=== PATIENT | female | born 1945 | race Caucasian/White ===

== ENCOUNTER 2024-06-10 10:51 | Emergency (ER) | payer MEDICARE, SELFPAY ==
[2024-06-10] VITALS (10 sets, daily range): BP systolic 111–140; BP diastolic 68–82; PULSE 63–79; RESP 15–92; TEMP 36.2–36.9; O2SAT 92–98; BMI 21.1
--- NOTE | 2024-06-10 11:10 | EKG_ITS ---
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
--- NOTE | 2024-06-10 11:35 | EDNOTE_ITS ---
ED Fall Injury RME/HPI General Chief Complaint: Fall Stated Complaint: FALL Time Seen by Provider: 06/10/24 11:15 Arrival date/time: 06/10/24 10:51 RME / HPI RME / HPI Narrative: 79-year-old female patient, with significant history of seizure, dementia, hypothyroidism, was brought in from custodial for evaluation regarding ground-level fall. Unwitnessed. Patient was noted on the floor. Patient complained of left shoulder pain, left hip pain, and bruising to the left eyebrow. Patient is only alert and oriented x 1 to self only. Patient answers questions when asked. Denies any complaint. She does not remember what happene d. Patient was given morphine on the way to the emergency room. Related Data Home Medications ?Medication ?Instructions ?Recorded ?Confirmed Calcium Carbonate/Vitamin D3 600 mg PO QDAY ##0 01/14/16 10/11/18 (Calcium + D 600 Mg Tablet) Multivitamins With Minerals * 1 chew PO QDAY #0 tabs 01/14/16 10/11/18 (CENTRUM *) esomeprazole magnesium 40 mg 40 mg PO QDAY ##0 01/14/16 01/23/18 capsule,delayed release (Nexium) magnesium 250 mg tablet 400 mg PO BID #0 tabs 01/14/16 01/23/18 metoprolol succinate 100 mg 100 mg PO QDAY ##0 01/14/16 10/11/18 tablet,extended release 24 hr (Toprol XL) ramipril 2.5 mg capsule (Altace) 2.5 mg PO BID #0 caps 01/14/16 10/11/18 simvastatin 10 mg tablet (Zocor) 10 mg PO HS #0 tabs 01/14/16 10/11/18 venlafaxine 150 mg 150 mg PO QDAY ##0 12/24/16 10/11/18 capsule,extended release 24 hr (Effexor XR) aspirin 81 mg tablet,delayed 81 mg PO QDAY 10/11/18 10/11/18 release (Wander Low Dose Aspirin) ferrous sulfate 27 mg iron tablet 65 mg PO QDAY 10/11/18 10/11/18 donepezil 10 mg tablet 10 mg PO QDAY 06/07/20 06/07/20 memantine 10 mg tablet 20 mg PO QDAY 06/07/20 06/07/20 ramipril 2.5 mg tablet 2.5 mg PO QDAY 06/07/20 06/07/20 Previous Rx's ?Medication ?Instructions ?Recorded albuterol sulfate 90 mcg/actuation 2 puff inhalation Q4H #1 unit 01/15/18 aerosol inhaler (Ventolin HFA) benzonatate 100 mg capsule 100 mg PO TID PRN cough #30 caps 01/23/18 (Shahnaz Angeles) cefuroxime axetil 500 mg tablet 500 mg PO BID 7 days #14 tabs 06/10/24 Allergies Allergy/AdvReac Type Severity Reaction Status Date / Time Penicillins Allergy Unknown Verified 10/11/18 12:09 Sulfa (Sulfonamide Allergy Unknown Verified 10/11/18 12:09 Antibiotics) Review of Systems Review of Systems Narrative Review of Systems: Review of system reviewed and within normal limits except mentioned in HPI ED Exam Narrative Physical exam: VITAL SIGNS: Reviewed. GENERAL APPEARANCE: Alert and interactive, follows commands, no acute distress, HEAD AND FACE: Bruising noted to the left eyebrow ENT: PERRL, pink conjunctivitis, eyelid no trauma, Mucous membrane moist. NECK: Supple, nontender, no nuchal rigidity. CHEST: No tenderness, no crepitus, no paradoxical movement, no retractions. LUNGS: Clear, well ventilated, symmetric, no rales, no wheezing, no ronchi, no stridor, good breath sounds bilaterally. HEART: Regular rate, regular rhythm, no murmur, no gallops. ABDOMEN: Soft, positive bowel sounds, nondistended, no guarding, nontender, no rebound, no masses, RECTAL: Deferred. GENITAL: Deferred. NEUROLOGICAL: Gross motor function intact sensory function intact, Appropriate for age. MUSCULOSKELETAL: low back nontender, full range of motion. EXTREMITIES: Nontender, full range of motion. SKIN: Color pink, dry, no rash, no lacerations, no abrasions, no contusions. LYMPHATICS: Deferred. Course Quality Measures none Orders Category Date Time Status EKG (ED ONLY) *Do not use* NOW Care 06/10/24 11:10 Completed In and Out Catheter X1 Care 06/10/24 11:[address] cervical spine wo con Stat Exams 06/10/24 11:[address] facial bones wo con Stat Exams 06/10/24 11:[address] head/brain wo con Stat Exams 06/10/24 11:38 Completed EKG (ED Only) Stat Exams 06/10/24 11:10 Draft XR chest 1V Stat Exams 06/10/24 11:38 Completed XR hip LT w pelvis 2-3V Stat Exams 06/10/24 11:38 Completed XR shoulder LT min 2V Stat Exams 06/10/24 11:38 Completed CBC [CBC] Stat Lab 06/10/24 11:53 Completed CMP [Comprehensive Metabolic Panel] Stat Lab 06/10/24 11:53 Completed UA [Urinalysis] Stat Lab 06/10/24 12:28 Completed cefTRIAXone/D5w 1gm IV premix [Rocephin/D5w 1gm IV Med 06/10/24 14:31 Active premix] 50 ml IV X1 Oxygen Delivery NOW RT 06/10/24 11:12 Active Vital Signs Vital signs: Vital Signs Temperature 97.1 F 06/10/24 11:11 Pulse Rate 79 06/10/24 11:11 Respiratory Rate 16 06/10/24 11:11 Blood Pressure 121/68 06/10/24 11:11 Pulse Oximetry (%) 92 L 06/10/24 11:11 Oxygen Delivery Method Room Air 06/10/24 11:11 Fall MDM Narrative MDM Narrative:: 79-year-old female patient, with significant history of seizure, dementia, hypothyroidism, was brought in from custodial for evaluation regarding ground-level fall. Unwitnessed. Patient was noted on the floor. Patient co mplained of left shoulder pain, left hip pain, and bruising to the left eyebrow. Patient is only alert and oriented x 1 to self only. Patient answers questions when asked. Denies any complaint. She does not remember what happened. Patient was given morphine on the way to the emergency room. Patient received ceftriaxone IM for UTI the rest of the workup came back normal. See laboratory results and imaging results patient stable for discharge Patient data External records reviewed:: [facility] previous records Clinical information provided by:: EMS Social determinants that could affect healthcare access:: none Patient has the following chronic illnesses:: Dementia, hypertension How is presenting disease/condition affected by chronic disease/condition?: exacerbated by Evaluation data The following diagnostics were reviewed and interpreted by me:: lab results and radiology exam(s) Lab and/or radiology exams considered but not ordered:: None Interpretation Summary: EKG showed normal sinus rhythm, ventricular rate of 69 bpm, no ST segment elevation or depression noted. CT scan of the head came back unremarkable CT scan of the neck came back unremarkable. CT scan of the face came back unremarkable. X-ray of the shoulder came back unremarkable x-ray of the head came back unremarkable. Chest x-ray also came back unremarkable. Laboratory workup is significant for UTI otherwise unremarkable. Medications / Prescriptions Medications or Prescriptions considered but not ordered:: None Medication administrations:: Medication Administration History Ceftriaxone Sodium/Dextrose (Rocephin/D5w 1gm Iv Premix) 50 mls @ 100 mls/hr IV X1 ONE Stop: 06/10/24 15:00 Ceftriaxone IM Consultations Consultation(s) initiated? (list below): No Diagnosis Fall Differential Diagnosis: other (UTI, fall, dementia) Most likely diagnosis given after review of the tests above:: UTI, fall Admission Indicated Admission indicated?: not indicated Explain why admission is indicated or not indicated:: None Admission Request Was there a request for admission?: No Disposition Plan Disposition Plan: Discharge Discharge Attestation Discharge Attestation: Patient condition: Stable Discharge Plan Plan Patient Disposition: HOME (Self Care) Disposition Comment: Stable Prescriptions/Referrals Prescriptions/Med Rec: New cefuroxime axetil 500 mg tablet 500 mg PO BID 7 Days Qty: 14 0RF No Action albuterol sulfate [Ventolin HFA] 90 mcg/actuation HFA aerosol inhaler 2 puff INH Q4H Qty: 1 0RF benzonatate [Tessalon Perles] 100 mg capsule 100 mg PO TID PRN (Reason: cough) Qty: 30 0RF metoprolol succinate [Toprol XL] 100 MG tablet extended release 24 hr 100 mg PO QDAY Qty: 0 simvastatin [Zocor] 10 MG tablet 10 mg PO HS Qty: 0 esomeprazole magnesium [Nexium] 40 MG capsule,delayed release(DR/EC) 40 mg PO QDAY Qty: 0 ramipril [Altace] 2.5 MG capsule 2.5 mg PO BID Qty: 0 magnesium 250 MG tablet 400 mg PO BID Qty: 0 Calcium Carbonate/Vitamin D3 (Calcium + D 600 Mg Tablet) 1 EACH tablet 600 mg PO QDAY Qty: 0 Multivitamins With Minerals * (CENTRUM *) 1 TAB tablet 1 chew PO QDAY Qty: 0 venlafaxine [Effexor XR] 150 MG capsule,extended release 24hr 150 mg PO QDAY Qty: 0 aspirin [Wander Low Dose Aspirin] 81 mg Tablet,Delayed Release (Dr/Ec) 81 mg PO QDAY ferrous sulfate 27 mg iron Tablet 65 mg PO QDAY donepezil 10 mg Tablet 10 mg PO QDAY memantine 10 mg Tablet 20 mg PO QDAY ramipril 2.5 mg Tablet 2.5 mg PO QDAY Referrals: No Primary/Family,Physician [Primary Care Provider] - In 1 week Problem List Clinical Impression: Acute UTI (urinary tract infection), Fall Patient/Caregiver Discharge Instructions Discharge Activity: activity as tolerated Education Materials: Understanding Urinary Tract ... Additional Instructions: Thank you for the opportunity for serving you today. You are stable for discharged . You are advised to: Follow-up with your PCP in 1 to 2 days Return to ED for worsening of symptoms Increase oral fluids Take medication as prescribed Print Language: Citizen Of [place] Stand Alone Forms: Lolita Award Info., Patient Portal Info Letter TORI/ALLIE Supervising Physician TORI/ALLIE Supervising Physician: MD Alvina
--- NOTE | 2024-06-10 11:38 | XR_ITS ---
Examination:Left hip AP, lateral, AP pelvis 3 views Technique: Hip AP lateral, AP pelvis, 3 views Exam date and time:June 10, 2024 at 12:00 PM Indications: Injury to left hip today, left hip pain Findings: Prominent osteopenia No acute left hip fracture or hip dislocation Right hip bones of the pelvis intact Impression: No acute left hip fracture If pain persists, recommend short-term follow-up AP pelvis or CT pelvis left hip follow-up, given the osteopenia
--- NOTE | 2024-06-10 11:38 | XR_ITS ---
Examination: CT maxillofacial, without intravenous contrast. 2-D sagittal reconstructions. 3-D reconstructions. Date and time of exam:June 10, 2024 1243 hrs. Indications: Patient fell today with injury of the face, facial pain CTDI: vol (mGy):17.4 DLP: (mGycm):312 Technique: Multiple axial images of maxillofacial region, 3.0 mm slice thickness. 2-D sagittal and coronal reconstructions. 3-D reconstructions. Low dose protocols were performed. One or more of the following dose reduction techniques were used; automated exposure control, adjustment of the mA and/or KV according to patient size, use of iterative reconstruction technique. Findings: No frontal bone frontal sinuses fracture Nasal bones intact No depression zygomatic arches Orbital rims intact Maxilla mandible intact Impression: No acute facial fracture.
--- NOTE | 2024-06-10 11:38 | XR_ITS ---
Examination: AP chest single view Technique: AP portable upright chest single view Exam date and time: June 10, 2024 1157 hrs. Comparison January 21, 2023 Indications: Injury to the chest to left shoulder today Findings: Mild enlargement cardiac contour Opacity in the left mid and lower lung zone Transvenous dual-chamber bipolar cardiac leads satisfactory position Prominent vascular congestion Opacity also at the right cardiophrenic angle Prominent osteopenia No shoulder or rib fractures Impression: Mild heart failure Recommend lateral chest film follow-up to better assess opacities in the left lung and at the right cardiophrenic angle
--- NOTE | 2024-06-10 11:38 | XR_ITS ---
Examination: CT brain head without contrast. 2-D sagittal coronal reconstructions Date and time of exam:June 10, 2024 1243 hrs. Indications: Patient fell today with injury to the head, head pain CTDI: vol (mGy):46.8 DLP: (mGycm):980 Technique: Multiple CT axial sections of the brain have been obtained, 5 mm slice thickness. Contrast has not been administered. 2-D sagittal, coronal reconstructions have been obtained Low dose protocols were performed. One or more of the following dose reduction techniques were used; automated exposure control, adjustment of the mA and/or KV according to patient size, use of iterative reconstruction technique. Findings: No significant ventricular enlargement. Intra-axial or extra-axial hemorrhage density is not seen. No mass effect or midline shift Basal cisterns are not remarkable. Fourth ventricle is midline. Cranial vault intact. Impression: Negative for acute hemorrhage, mass effect or midline shift
--- NOTE | 2024-06-10 11:38 | XR_ITS ---
Examination: CT cervical spine without contrast 2-D sagittal reconstructions 2-D coronal reconstructions 3-D reconstructions. Exam date and time:June 10, 2024 12:43 PM CTDI:vol (mGy) 12.7 DLP: (mGycm) 265 Technique: Multiple 2 mm axial sections of the cervical spine have been obtained. The coronal and sagittal reconstructions have been obtained. 3-D reconstructions have been obtained. Low dose protocols were performed. One or more of the following dose reduction techniques were used; automated exposure control, adjustment of the mA and/or KV according to patient size, use of iterative reconstruction technique. Findings: Axial sections demonstrate intact base of the skull. C1 exhibit satisfactory relationship to the odontoid. No acute cervical vertebral body fracture seen. Alignment posterior spinous processes satisfactory. Impression: No acute cervical fracture.
--- NOTE | 2024-06-10 11:38 | XR_ITS ---
Examination: Shoulder,left, 3 views Technique: Shoulder AP internal rotation, AP external rotation, Y view shoulder, 3 views Exam date and time :June 10, 2024 11:43 AM Indications: Injury to the shoulder today, shoulder pain Findings: No shoulder fracture or dislocation Prominent osteopenia Impression: No shoulder fracture or dislocation
[2024-06-10 12:10] LABS: Basophils # (Auto) 0.1 Thou/mm3 (0.0-0.2); Basophils % (Auto) 1 % (0-2.5); Eosinophils # (Auto) 0.3 Thou/mm3 (0.0-0.5); Eosinophils % (Auto) 3 % (0-10); Hematocrit 38.7 % (36.0-46.0); Hemoglobin 13.4 g/dL (12.0-16.0); Immature Granulocytes % (Auto) 0 % (0-0); Immature Granulocytes Auto 0.04 Thou/mm3 (0.00-0.00); Lymphocytes % (Auto) 19 % (10-50); Mean Corpuscular HGB Conc 34.6 g/dl (31.0-37.0); Mean Corpuscular Volume 95 fL (80-100); Monocytes # (Auto) 1.3 Thou/mm3 (0.0-0.8); Monocytes % (Auto) 12 % (0-12); Neutrophils # (Auto) 7.2 Thou/mm3 (1.8-7.7); Neutrophils % (Auto) 66 % (37-80); Nucleated Red Blood Cell % 0 /100 WBC (0); Platelet Count 286 Thou/mm3 (140-440); RDW Standard Deviation 45.6 fL (36.4-46.3); Red Blood Count 4.06 Miln/mm3 (4.00-5.20); White Blood Count 10.9 Thou/mm3 (3.6-11.0)
[2024-06-10 12:32] LABS: Alanine Aminotransferase 73 U/L (10-49); Albumin, Serum 4.2 gm/dL (3.4-4.8); Albumin/Globulin Ratio 1.8 (1.2-2.2); Alkaline Phosphatase 76 U/L (46-116); Anion Gap 6 (7-16); Aspartate Amino Transferase 115 U/L (0-34); BUN/Creatinine Ratio 23 Ratio (12-20); Bilirubin,Total 0.6 mg/dL (0.3-1.2); Blood Urea Nitrogen 16 mg/dL (9-23); Calcium 9.3 mg/dL (8.3-10.6); Calcium (Corrected) 9.3 mg/dL (8.5-10.1); Carbon Dioxide 28.1 mMol/L (20.0-31.0); Chloride 107 mMol/L (98-107); Creatinine (Component) 0.7 mg/dL (0.6-1.3); Estimated Creatinine Clearance 65.1 mL/min (>60); Globulin 2.4 gm/dL (2.3-3.5); Glucose 97 mg/dL (74-106); Osmolality,Calculated 282 (275-295); Potassium 3.6 mMol/L (3.4-5.1); Sodium 141 mMol/L (136-145); Total Protein 6.6 gm/dL (5.7-8.2); eGFR > 60 See Note
[2024-06-10 13:11] LABS: Collection Type, Urine Catheter
[2024-06-10 13:52] LABS: Bacteria,Urine 4+; Bilirubin,Urine Negative (Negative); Blood,Urine Negative (Negative); Clarity,Urine Clear (Clear/Hazy); Color,Urine Yellow (Lt Yel-Yel); Glucose, Urine Negative (Negative); Ketones,Urine Negative (Negative); Leukocyte Esterase,Urine Positive (Negative); Nitrite,Urine Positive (Negative); PH,Urine 6.5 (5.0-7.0); Protein,Urine Trace (Neg - Trace); RBC,Urine 2 /hpf (0-3); Specific Gravity,Urine 1.029 (1.001-1.035); Squamous Epithelial Cell,Urine 5 /hpf (0-5); Urobilinogen,Urine Negative mg/dL (0.0-1.0); WBC,Urine 78 /hpf (0-5)
--- NOTE | 2024-06-10 14:28 | PC.NURSE ---
Spoke to Rosalva from [facility] and updated regarding pt's POC at this time.
[2024-06-10] MEDS: cefTRIAXone/D5w 1gm IV premix 50 ML IV (14:48)
--- NOTE | 2024-06-10 15:10 | PC.NURSE ---
@1510- Spoke to Joanne RN from [facility] for [id number] report and made aware that pt is ready for discharge. Per Joanne, Our facility does not set up the transport. @1511- Spoke to [employer] socially responsible investment adviser and made aware that pt needs a ride back to [facility]; per Galilea, will set up transport for pt and give you an eta soon.
--- NOTE | 2024-06-10 15:53 | PC.CC ---
ED Net Front End Developer assisted with transportation through [employer].
--- NOTE | 2024-06-10 19:49 | PC.NURSE ---
SPOKE TO NURSE MEG AT [facility] AND GAVE REPORT ON PT. ALL QUESTIONS ANSWERED. EMS HERE READY FOR TRANSPORT. REPORT GIVEN TO MICKI JESUS.
== END 2024-06-10 19:50 | disposition home or self-care (01) ==
PROVIDERS: Nurse Practitioner Family; Emergency Provider Emergency Medicine
DX: S00.12XA Contusion of left eyelid and periocular area, initial encounter (principal); S29.9XXA Unspecified injury of thorax, initial encounter; S79.912A Unspecified injury of left hip, initial encounter; S49.92XA Unspecified injury of left shoulder and upper arm, initial encounter; S19.9XXA Unspecified injury of neck, initial encounter; N39.0 Urinary tract infection, site not specified; W18.30XA Fall on same level, unspecified, initial encounter
CPT/HCPCS: 51701; 36415; 70450; 70486; 71045; 72125; 73030; 73502; 80053; 81001; 85025; 96365; 99284; J0696